=== PATIENT | female | born 1965 | race Caucasian/White ===

== ENCOUNTER 2021-09-09 21:26 | Emergency (ER) | payer OTHER ==
[~2021-09-09] VITALS: Ht 160 cm; Wt 81.7 kg
[2021-09-09 22:42] LABS: ABSOLUTE NEUTROPHILS 9.2 thou/uL (1.4-8.2); EOSINOPHILS 3.6 % (0.0-3.0); HEMATOCRIT 35.2 % (37.0-47.0); LYMPHOCYTES 11.7 % (24.0-44.0); MCH 25.9 pg (26.0-34.0); MCHC 31.3 g/dL (28.0-37.0); MCV 82.7 fL (80.0-100.0); MONOCYTES 4.2 % (1.0-8.0); PLATELET COUNT 451 thou/uL (150-400); POLYS 79.5 % (36.0-66.0); RBC 4.26 mil/uL (4.20-5.00); RDW 21.5 % (10.5-14.5); WBC 11.5 thou/uL (4.0-11.0)
[2021-09-09 22:43] LABS: CREATININE 1.9 mg/dL (0.6-1.0); POTASSIUM 3.2 mmol/L (3.5-5.1)
[2021-09-09 22:53] LABS: ALBUMIN 2.4 g/dL (3.4-5.0); TOTAL BILIRUBIN 0.6 mg/dL (0.2-1.0); TOTAL PROTEIN 7.8 g/dL (6.4-8.2)
[2021-09-10 02:07] VITALS: BP 101/57
--- NOTE | 2021-09-10 08:04 | EKG ---
[address] [address] ELECTROCARDIOGRAM REPORT Name: JUAN ALFONSO [id number] Admission: 09/09/21 Attend Phys: Discharge: 09/10/21 Date of : 67 Report #: [id number] [facility] ED Test Date: 2021-09-09 Test Time: 21:52:39 Pat Name: JUAN ALFONSO Department: Room: Gender: F Net C Developer: nelli : 1965 Requested By: Cb Adair Order Number: [id number] MD: Prosper Byrd Measurements Intervals [place] Rate: 79 P: 49 SD: 146 QRS: 15 QRSD: 101 T: 9 QT: 407 QTc: 467 Interpretive Statements Sinus rhythm No previous ECG available for comparison Electronically Signed On 09-10-2021 8:04:15 [employer] by Prosper Byrd [email or web address] <ELECTRONICALLY SIGNED> By: Prosper Byrd MD, [facility] 09/10/21 08 51 [id number] Prosper Byrd MD, FACC /EPI
== END 2021-09-10 02:07 ==
LOC: ER 21:26
PROVIDERS: Emergency Medicine
DX: E16.2 Hypoglycemia, unspecified (principal); Z20.822 Contact with and (suspected) exposure to COVID-19; I25.10 Atherosclerotic heart disease of native coronary artery without angina pectoris; E11.22 Type 2 diabetes mellitus with diabetic chronic kidney disease; N18.6 End stage renal disease; Z99.2 Dependence on renal dialysis

== ENCOUNTER 2021-09-18 13:43 | Emergency (ER) | payer OTHER ==
[2021-09-18 14:46] VITALS: BP 51/24
--- NOTE | 2021-09-19 11:58 | EKG ---
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 : 1965 Requested By: Branden Hanley Order Number: [id number] MD: Prasanth Mortensen Measurements Intervals [place] Rate: 186 P: [place]: QRS: 29 QRSD: 103 T: -62 QT: 260 QTc: 457 Interpretive Statements Atrial fibrillation with rapid V-rate Repolarization abnormality, prob rate related Consider inferior infarct Compared to ECG 09/09/2021 21:52:39 ST and T wave abnormality is now present Sinus rhythm no longer present Electronically Signed On 09-19-2021 11:58:21 [employer] by Prasanth Mortensen [email or web address] <ELECTRONICALLY SIGNED> By: Prasanth Mortensen MD, [facility] 09/19/21 1158 [id number] 141 Prasanth Mortensen MD, [facility] /EPI
== END 2021-09-18 14:49 ==
LOC: ER 13:43
DX: I46.9 Cardiac arrest, cause unspecified (principal); I48.20 Chronic atrial fibrillation, unspecified; N18.6 End stage renal disease; Z99.2 Dependence on renal dialysis; I95.9 Hypotension, unspecified